=== PATIENT | female | born 1995 | race Caucasian/White ===

== ENCOUNTER 2021-05-22 18:53 | Emergency (ER) | payer BC ==
[~2021-05-22] VITALS: Ht 160 cm; Wt 60.3 kg
[2021-05-22] MEDS ORDERED: KETO10TA2 PO (19:32)
[2021-05-22] MEDS ORDERED: DUI500 PO (19:32)
== END 2021-05-22 19:48 | disposition home or self-care (01) ==
LOC: ER 18:53
DX: K11.21 Acute sialoadenitis (principal)